=== PATIENT | female | born 1965 | race Caucasian/White ===

== ENCOUNTER → 2017-08-18 | Outpatient (CLI) | payer BC ==
[~2017-08-18] MED LIST: ASP81TEC PO; DIPH25TA82 PO; POTA20TA15 PO; TRIA1TAB42 PO
--- NOTE | 2017-08-18 17:56 | Diagnostic Imaging Report ---
PROCEDURE: CT chest without contrast. TECHNIQUE: Multiple contiguous axial images were obtained through the chest without the use of intravenous contrast. INDICATION: Ascending aortic aneurysm followup. COMPARISON: 04/23/2016. FINDINGS: There is a stable ascending aortic aneurysm with a caliber of 4.6 cm seen. The proximal aspect of the arch is also aneurysmal at 4.1 cm with normalization of the arch caliber posteriorly. The descending thoracic aortic caliber is normal. The aortic root does not appear to be significantly dilated with motion artifact preventing accurate measurement. The heart size is normal. No pericardial or pleural effusion. There is no mediastinal mass. The lungs demonstrate no significant consolidation, mass, or suspicious nodule. The liver demonstrates diffuse steatosis of moderate degree. The osseous structures demonstrate minimal degenerative changes. IMPRESSION: Stable thoracic aortic aneurysm measuring 4.6 cm in the mid ascending aorta and 4.1 cm in the proximal aortic arch. Dictated by: Dictated on workstation # [id number]
== END ==
LOC: RAD 09:51
PROVIDERS: ATTEND Internal Medicine
DX: I71.2 Thoracic aortic aneurysm, without rupture (principal)
CPT/HCPCS: 71250

== ENCOUNTER → 2018-01-14 | Outpatient (CLI) | payer BC, OTHER | LOC: CARD 11:31 | PROVIDERS: ATTEND Internal Medicine | DX: Q23.1 Congenital insufficiency of aortic valve (principal); I71.2 Thoracic aortic aneurysm, without rupture | CPT/HCPCS: 93306 ==

== ENCOUNTER → 2019-07-19 | Outpatient (CLI) | payer BC, OTHER ==
--- NOTE | 2019-07-19 15:38 | Diagnostic Imaging Report ---
CT CHEST WO TECHNIQUE: Multiple contiguous axial images were obtained through the chest without the use of intravenous contrast. All CT scans use one or more of the following dose optimizing techniques: automated exposure control, MA and/or KvP adjustment based on a patient size and exam type, or iterative reconstruction. INDICATION: Bicuspid aortic valve, aortic aneurysm. COMPARISON: CT chest of 08/18/2017. FINDINGS: Lungs and airway: No endoluminal nodule within the trachea. No pulmonary mass or consolidation. Stable benign 3 mm right apical pulmonary nodule. No new pulmonary nodule. Pleura: No pleural effusion or pneumothorax. Heart and mediastinum: No supraclavicular or axillary lymphadenopathy. No mediastinal, hilar, or juxtaphrenic lymphadenopathy. Heart is normal in size without pericardial effusion. Fusiform aneurysmal dilatation of the aortic root is unchanged. Near the the sinotubular junction, the aorta measures approximately 4.1 cm and in the mid ascending aorta, there is a maximal diameter of 4.6 cm. The aortic arch and descending aorta remain normal in caliber. Upper abdomen: Diffuse hepatic steatosis is unchanged. Musculoskeletal: No worrisome focal osseous lesions. IMPRESSION: 1. Stable size of ascending aortic aneurysm. Dictated by: Dictated on workstation # [id number]
== END ==
LOC: CARD 13:15
PROVIDERS: ATTEND Internal Medicine
DX: I71.9 Aortic aneurysm of unspecified site, without rupture (principal); Q23.1 Congenital insufficiency of aortic valve
CPT/HCPCS: 71250; 93306

== ENCOUNTER → 2020-10-25 | Outpatient (CLI) | payer BC | LOC: LABNPT 05:41 | PROVIDERS: ATTEND Internal Medicine | DX: Z20.822 Contact with and (suspected) exposure to COVID-19 (principal) | CPT/HCPCS: 87635 ==

== ENCOUNTER → 2020-10-31 | Outpatient (CLI) | payer BC ==
--- NOTE | 2020-10-31 09:20 | Diagnostic Imaging Report ---
EXAMINATION: CT Chest without contrast. TECHNIQUE: Multiple contiguous axial images were obtained through the chest without the use of intravenous contrast. All CT scans use one or more of the following dose optimizing techniques: automated exposure control, MA and/or KvP adjustment based on a patient size and exam type, or iterative reconstruction. HISTORY: Ascending aortic aneurysm COMPARISON: 07/19/2019 FINDINGS: There is no edema or pneumonia. No pleural effusion. No pneumothorax. No suspicious nodules. There is no axillary or supraclavicular lymphadenopathy. There is no mediastinal lymphadenopathy. Heart size is normal. There are no coronary artery calcifications. No pericardial effusion. Ascending aorta is unchanged in size measuring 4.6 x 4.6 cm in its maximal dimension. There are aortic valvular calcifications suggestive of aortic stenosis. Limited views of the upper abdomen are unremarkable. There are no suspicious osseus lesions. IMPRESSION: 1. Stable ascending aortic aneurysm with aortic valvular calcification suggestive of aortic stenosis. Dictated by: Dictated on workstation # [id number]
== END ==
LOC: CARD 08:39
PROVIDERS: ATTEND Internal Medicine
DX: I71.2 Thoracic aortic aneurysm, without rupture (principal); I70.0 Atherosclerosis of aorta; I35.8 Other nonrheumatic aortic valve disorders
CPT/HCPCS: 71250; 93306

== ENCOUNTER 2023-02-04 06:36 | Outpatient (CLI) | payer BC ==
[~2023-02-04] VITALS: Ht 170.2 cm; Wt 78.0 kg
[2023-02-06] MEDS ORDERED: RT-ALBUINH INH (15:34)
[2023-02-06] MEDS ORDERED: NEBI20TA2 PO (15:34)
[2023-02-06] MEDS ORDERED: ALPR0.5T PO (15:34)
== END 2023-02-06 15:43 | disposition home or self-care (01) ==
LOC: PREOP 06:36
PROVIDERS: ATTEND Internal Medicine
DX: Z01.818 Encounter for other preprocedural examination (principal)

== ENCOUNTER 2023-03-13 08:44 | Day surgery (SDC) | payer BC ==
--- NOTE | 2023-01-30 08:53 | HISTORY AND PHYSICAL ---
COLONOSCOPY HISTORY AND PHYSICAL HISTORY OF PRESENT ILLNESS: The patient is a 57-year-old white female seen for yearly wellness evaluation. She had one other colonoscopy 10 years ago that was unremarkable. In the interim, her sister was diagnosed with colon cancer at the age of 49. She reports some occasional bright red blood per rectum that she attributes to hemorrhoids. She has noted over the last several months she has had no abdominal pain. She has had no abdominal pain, change in bowel habit or change in weight. She reports that she has been feeling well. She has had no chest pain or shortness of breath. PAST MEDICAL HISTORY: Significant for likely bicuspid aortic valve and ascending aortic aneurysm. It has been 2 years since her last echocardiogram, at which time her aneurysm was measured at 4.46 centimeter in diameter and stable compared to 2019 and 2017. She has a history of hypertension. FAMILY HISTORY: As noted above. SOCIAL HISTORY: She has no current smoking history and no significant alcohol intake. She is employed nurse. PHYSICAL EXAMINATION: GENERAL: Reveals a white female, appeared to be in no acute distress. VITAL SIGNS: Weight is 172.8 pounds, was up 7 pounds from her last office visit 14 months ago. Blood pressure 126/74. HEENT: Unremarkable. Sclerae nonicteric. CHEST: Clear to auscultation. CARDIOVASCULAR: Reveals regular rate and rhythm. She has a soft I to II/ systolic ejection murmur with questionable opening snap. No significant diastolic murmur appreciated. No S3 or S4 noted. ABDOMEN: Soft, supple without mass, organomegaly, or tenderness. EXTREMITIES: Revealed no cyanosis, clubbing or edema. Ear canals clear with normal TMs. SKIN: Evaluation reveals no suspicious nevi. PLAN: 1. Stable wellness evaluation. Hypertension under reasonable control. Considering history of bicuspid aortic valve and ascending aortic aneurysm, the patient is being set up for repeat echocardiogram. 2. Family history for colon cancer, index case being her sister diagnosed and succumbing to colon cancer in her late 40s. Prep instructions were given and questions were answered. We will see her for yearly wellness evaluation. Job ID: [id number] DocumentID: [id number] Dictated Date: 01/22/2023 16:34:01 Check Grader Date: 01/22/2023 17:14:00 Dictated By: BRAD GUPTA MD
[2023-03-13] VITALS (7 sets, daily range): BP systolic 84–119; BP diastolic 54–68
[~2023-03-13] VITALS: Ht 170.2 cm; Wt 78.0 kg
[~2023-03-13 08:44] MED LIST changes: +ALPR0.5T PO; +NEBI20TA2 PO; +RT-ALBUINH INH
[2023-03-13] MEDS ORDERED: LACTATED RINGERS 1,000 ML IV STA (08:47)
--- NOTE | 2023-03-13 08:58 | Pre-Op Note & Conscious Sedat ---
Pre-Operative Progress Note Date H&P Reviewed: Mar 13, 2023 Time H&P Reviewed: 08:57 History & Physical: H&P Reviewed, Patient Examed, No changes noted Pre-Op Diagnosis: screening Moderate Sedation PreProcedure ASA Score 2 Airway Lungs Heart ASA score ASA 1: a normal healthy patient ASA 2: a patient with a mild systemic disease (mid diabetes, controlled hypertension, obesity ASA 3: a patient with a severe systemic disease that limits activity (angina, COPD, prior Myocardial infarction) ASA 4: a patient with an incapacitating disease that is a constant threat to life (CHF, renal failure) ASA 5: a moribund patient not expected to survive 24 hrs. (ruptured aneurysm) ASA 6: a declared brain- patient whose organs are being harvested. For emergent operations, add the letter E after the classification Mallampati Classification Grade 2 Sedation Plan Analgesia, Amnesia, Plan communicated to team members, Discussed options with patient/fam, Discussed risks with patient/fam The patient is an appropriate candidate to undergo the planned procedure, sedation, and anesthesia. The patient immediately re-assessed prior to indication. BRAD GUPTA MD Mar 13, 2023 08:58
[2023-03-13] MEDS ORDERED: MIDAZOLAM 2 MG/2 ML (VERSED) VIAL ONE (09:30)
[2023-03-13] MEDS ORDERED: PROPOFOL INJECTION 50 ML IV ONE ×3 (09:30→10:13)
--- NOTE | 2023-03-13 11:49 | Progress Note-Post Operative ---
Post-Procedure Note Physician (s)/Chick Room Supervisor (s) Physician BRAD GUPTA MD Pre-Procedure Diagnosis Pre-Procedure Diagnosis: screening Post-Procedure Diagnosis Post-operative diagnosis: Prior to undergoing colonoscopy digital rectal evaluation was performed. Anal suture tone was normal and the perianal reflexes intact. No abnormalities noted on digital inspection anal canal or distal rectal vault. The colonoscope was then inserted into the rectum and under direct visualization advanced to the cecum. The cecum was identified by indication of the Ileocecal valve and cecal strap. Photographic documentation was obtained. A careful inspection was made as the colonoscope was withdrawn. Quality the prep was good. findings: There was no evidence for internal or external hemorrhoids. The rectum was unremarkable. Moderate diverticular disease confined to the sigmoid colon was present. Present in the mid sigmoid colon was a variegated area with a villous type of appearance although it was quite uniform biopsies obtained and submitted to see if this was indeed a true polyp or not. Proximal to this in the proximal sigmoid colon was a large pedunculated lobular polyp it was snared very close to the base ligated with approximate 10 cc of blood loss. Between blood and colonic spasm I was unable to retrieve the polyp with the basket. I could not definitively identify the transected polyp stalk to Endo Clip however there appeared to be cessation of bleeding with No evidence for active bleeding distal to the polyp site. Present in the proximal ascending colon were blush areas consistent with angiodysplasia photograph was obtained no evidence for active bleeding was noted. The cecum of the colon was unremarkable and other than the aforementioned abnormalities no other areas of neoplasia are identified. assessment: 1. 1 approximately 2 to 3 cm pedunculated polyp was removed via snare ligation at the base from the mid sigmoid colon we are still waiting for the patient to pass the polyp was I was unable to retrieve it due to moderate diverticular disease confined to the sigmoid colon bleeding and spasm post transection. Distal to this area in the mid sigmoid colon was a questionable polyp biopsies pending. Will await histopathology report but likely will be recommending no longer than the 6-month surveillance interval. 2. Angiodysplastic appearing lesions noted in the proximal ascending colon just distal to the cecum without evidence for bleeding. BRAD GUPTA MD Mar 13, 2023 11:49
== END 2023-03-13 12:18 | disposition home or self-care (01) ==
LOC: ENDO 08:44
PROVIDERS: ATTEND Internal Medicine
DX: Z12.11 Encounter for screening for malignant neoplasm of colon (principal); D12.5 Benign neoplasm of sigmoid colon; K63.5 Polyp of colon; K57.30 Diverticulosis of large intestine without perforation or abscess without bleeding; K55.20 Angiodysplasia of colon without hemorrhage; Z80.0 Family history of malignant neoplasm of digestive organs; I10 Essential (primary) hypertension; I71.21 Aneurysm of the ascending aorta, without rupture; Z28.310 Unvaccinated for COVID-19